=== PATIENT | male | born 1970 | race Caucasian/White ===

== ENCOUNTER → 2018-03-29 | Outpatient (CLI) | payer BC ==
[~2018-03-29] MED LIST: REGADENOSON 0.4 MG/5 ML SYRINGE IV ONE
--- NOTE | 2018-03-29 10:46 | ECHOF ---
Referral Reason:I48.1 Persistent atrial fibrillation MEASUREMENTS -------- HEIGHT: 182.9 cm WEIGHT: 108.9 kg BP: RVIDd: 3.1 cm (< 3.3) IVSd: 1.3 cm (0.6 - 1.1) LVIDd: 4.3 cm (3.9 - 5.3) LVPWd: 1.6 cm (0.6 - 1.1) IVSs: 1.4 cm LVIDs: 3.7 cm LVPWs: 1.6 cm LA Diam: 3.6 cm (2.7 - 3.8) LAESV Index (A-L): 19.76 ml/m Ao Diam: 3.5 cm (2.0 - 3.7) AV Cusp: 2.1 cm (1.5 - 2.6) LA Diam: 3.9 cm (2.7 - 3.8) MV EXCURSION: 15.271 mm (> 18.000) MV EF SLOPE: 92 mm/s (70 - 150) EPSS: 0.5 cm MV E Alfredo: 0.79 m/s MV DecT: 135 ms MV A Alfredo: 0.31 m/s MV E/A Ratio: 11.84 RAP: 5.00 mmHg RVSP: 15.61 mmHg FINDINGS -------- Undetermined rhythm. This was a technically adequate study. The left ventricular size is normal. There is mild concentric left ventricular hypertrophy. Overa ll left ventricular systolic function is normal with, an EF between 55 - 60 %. The right ventricle is normal in size. The left atrial size is normal. Normal LA size by volume 22+/-6 ml/m2. The right atrial size is normal. The aortic valve is trileaflet, and appears structurally normal. No aortic stenosis or regurgitation. Mild mitral annular calcification present. Mild mitral regurgitation is present. Mild tricuspid regurgitation present. There is no evidence of pulmonary hypertension. The right v entricular systolic pressure, as measured by Doppler, is 15.61mmHg. Trace/mild (physiologic) pulmonic regurgitation. The aortic root size is normal. There is no pericardial effusion. CONCLUSIONS -------- 1. The left ventricular size is normal. 2. There is mild concentric left ventricular hypertrophy. 3. Overall left ventricular systolic function is normal with, an EF between 55 - 60 %. 4. The right ventricle is normal in size. 5. The left atrial size is normal. 6. Normal LA size by volume 22+/-6 ml/m2. 7. The right atrial size is normal. 8. The aortic valve is trileaflet, and appears structurally normal. No aortic stenosis or regurgitati on. 9. Mild mitral annular calcification present. 10. Mild mitral regurgitation is present. 11. Mild tricuspid regurgitation present. 12. There is no evidence of pulmonary hypertension. 13. The right ventricular systolic pressure, as measured by Doppler, is 15.61mmHg. 14. Trace/mild (physiologic) pulmonic regurgitation. 15. The aortic root size is normal. 16. There is no pericardial effusion. LAN/WAN ENGINEER: Kimber Wick RDCS
--- NOTE | 2018-03-29 11:28 | NM ---
EXAMINATION TYPE: NM stress lexiscan cardiolite DATE OF EXAM: 03/29/2018 COMPARISON: NONE HISTORY: Persistent A. fib TECHNIQUE: After the intravenous administration of 9.78 mCi Tc 99m Sestamibi - Cardiolite resting SP ECT images acquired 45 minutes post injection. The patient received 0.4mg Lexiscan, 25.8 mCi Tc 99m Sestamibi - Stress images obtained [address] injection FINDINGS: Review of stress and rest SPECT images demonstrates no distinct perfusion abnormality. Gated analysi s shows normal wall motion with an estimated left ventricular ejection fraction of 49 %. IMPRESSION: 1. No diagnostic evidence of stress-induced reversible ischemia. 2. Ejection fraction of 49%. Correlate clinically.
--- NOTE | 2018-03-29 11:59 | EST ---
EXERCISE STRESS DATE OF SERVICE: 03/29/2018 AGE: 47 SEX: Male HT: 6'1" WT: 240 pounds PROTOCOL: Lexiscan Cardiolite STAGE: DURATION OF EXERCISE: HEART RATE REST: 84 BLOOD PRESSURE REST: 146/90 MAXIMUM HEART RATE ACHIEVED: 96 MAXIMUM BLOOD PRESSURE: 135/93 85% MPHR: 147 100% MPHR: 175 METS: INDICATIONS: CLINICAL INFORMATION: A Lexiscan Cardiolite study was performed. Peak heart rate of 96 was achieved maximum blood pressure of 135/93 mmHg was noted. The resting EKG shows a normal sinus rhythm with normal ID interval and QRS duration and normal ST-T waves. No ST-segment depression suggestive of ischemia was noted. The results of the nuclear study will follow. TIBURCIO / JEANN: [id number] /
== END | disposition home or self-care (01) ==
LOC: RADNMMAIN 08:22
PROVIDERS: ATTEND Internal Medicine Interventional Cardiology
DX: I08.1 Rheumatic disorders of both mitral and tricuspid valves (principal); I48.1 Persistent atrial fibrillation
CPT/HCPCS: 93017; 93306; 78452; A9500; J2785

== ENCOUNTER → 2018-04-17 | Outpatient (CLI) | payer BC ==
[2018-04-17 17:50] LABS: Basophils % (A) 1 %; Eosinophils # (A) 0.1 k/uL (0-0.7); Eosinophils % (A) 2 %; HCT 42.2 % (39.0-53.0); HGB 14.5 gm/dL (13.0-17.5); Lymphocytes # (A) 1.4 k/uL (1.0-4.8); Lymphocytes % (A) 23 %; MCH 29.9 pg (25.0-35.0); MCHC 34.3 g/dL (31.0-37.0); MCV 87.1 fL (80.0-100.0); Mean Platelet Volume 6.4; Monocytes # (A) 0.4 k/uL (0-1.0); Monocytes % (A) 6 %; Neutrophils # (A) 4.1 k/uL (1.3-7.7); Neutrophils % (A) 66 %; Platelet Count 221 k/uL (150-450); RBC 4.84 m/uL (4.30-5.90); RDW 13.2 % (11.5-15.5); WBC 6.2 k/uL (3.8-10.6)
[2018-04-17 19:14] LABS: Anion Gap 10 mmol/L; Blood Urea Nitrogen 20 mg/dL (9-20); Carbon Dioxide 22 mmol/L (22-30); Chloride 104 mmol/L (98-107); Potassium 4.4 mmol/L (3.5-5.1); Sodium 136 mmol/L (137-145)
== END | disposition home or self-care (01) ==
LOC: LABPAT 17:00
PROVIDERS: ATTEND Internal Medicine Interventional Cardiology
DX: Z01.812 Encounter for preprocedural laboratory examination (principal); R09.89 Other specified symptoms and signs involving the circulatory and respiratory systems; I48.1 Persistent atrial fibrillation
CPT/HCPCS: 80051; 82565; 84520; 85025

== ENCOUNTER 2018-04-18 06:22 | Day surgery (SDC) | payer BC ==
[2018-04-17 08:38] VITALS: BMI 31.6
[~2018-04-18 06:22] MED LIST changes: +LACTATED RINGERS 1,000 ML IV SCH; -REGADENOSON 0.4 MG/5 ML SYRINGE IV ONE; +SODIUM CHLORIDE 0.9% 1,000 ML IV SCH
[2018-04-18 06:51] LABS: Glucose,Whole Blood 151 mg/dL (75-99)
[2018-04-18 07:01] VITALS: TEMP 98.4
[2018-04-18] MEDS ORDERED: PROPOFOL 10 MG/ML 20 ML VIAL IV ONE (07:02)
[2018-04-18] MEDS ORDERED: BENZOCAINE SPRAY 1 CAN MUCOUS MEM ONE ×2 (07:20→07:23)
[2018-04-18] MEDS ORDERED: FAMOTIDINE 20 MG TAB PO PRN (07:37)
[2018-04-18] MEDS ORDERED: SODIUM CHLORIDE 0.9% 1,000 ML IV SCH (07:45)
--- NOTE | 2018-04-18 08:04 | ECHOT ---
TRANSESOPHAGEAL ECHOCARDIOGRAM INDICATION: Atrial fibrillation. PROCEDURE: After explaining the procedure to the patient, its risks and the complications, his blood pressure, heart rate, O2 saturation was monitored. The throat was sprayed with Cetacaine. He received sedation per anesthesia department. The probe was introduced into the esophagus without difficulty. Images were obtained. Following that, the probe was removed. There was no immediate complication. FINDINGS: Left atrial size is dilated. Left atrial appendage is normal. Left ventricular size is normal. There is moderate to severe global hypokinesis. Ejection fraction is 35% to 40% The aortic valve appears to be normal. Mitral valve is normal. Tricuspid valve is normal. Descending thoracic aorta appears to be normal. No pericardial effusion was noted. Contrast bubble study revealed no shunting across the interatrial septum. Doppler pulse wave and color Doppler obtained revealed mild to moderate mitral with mild tricuspid regurgitation. There was no shunting by color Doppler study. CONCLUSION: 1. Dilated left atrium with normal appearance of left atrial appendage. 2. Normal left ventricular size with moderate to severely impaired left ventricular systolic function. 3. Mild to moderate mitral with mild tricuspid regurgitation. 4. No shunting across the interatrial septum. 5. No pericardial effusion. MMODL / IJN: [id number] /
--- NOTE | 2018-04-18 08:40 | CE ---
CARDIAC ELECTROPHYSIOLOGY REPORT CARDIOVERSION PROCEDURE NOTE: INDICATION: Atrial fibrillation. PROCEDURE: After explaining the procedure to the patient, its risks and complications; blood pressure, heart rate, O2 saturation was monitored. After obtaining sedated state and performing transesophageal echocardiogram, a synchronized biphasic cardioversion using 200 joules was performed with roman catholic of normal sinus rhythm. There was no immediate complication. TIBURCIO / CHELSEY: [id number] /
[2018-04-18 08:53] VITALS: RESP 16
[2018-04-18] MEDS ORDERED: APIXABAN 5 MG TAB PO SCH (09:00)
[2018-04-18] MEDS ORDERED: METOPROLOL SUCCINATE (ER) 25 MG TAB.ER.24H PO SCH (09:00)
[2018-04-18] MEDS ORDERED: NON-FORMULARY DRUG (Metformin Hcl Er 500 MG) PO SCH (09:00)
[2018-04-18 09:35] VITALS: BP 133/84; PULSE 82
== END 2018-04-18 09:26 | disposition home or self-care (01) ==
LOC: CATHCVL 06:22
PROVIDERS: ATTEND Internal Medicine Interventional Cardiology
DX: I48.1 Persistent atrial fibrillation (principal); G47.33 Obstructive sleep apnea (adult) (pediatric); E11.9 Type 2 diabetes mellitus without complications; Z79.84 Long term (current) use of oral hypoglycemic drugs; Z79.01 Long term (current) use of anticoagulants; Z79.899 Other long term (current) drug therapy
CPT/HCPCS: 93312; 93320; 93325; 92960; J2704

== ENCOUNTER → 2018-06-04 | Outpatient (CLI) | payer BC ==
--- NOTE | 2018-06-04 18:59 | CONS ---
CONSULTATION REASON FOR CONSULTATION: Sleep apnea. 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 He has loud snoring, witnessed apneas, excessive tiredness and sleepiness, and he can fall asleep any time during the day. Moreover, the patient was diagnosed having cardiac arrhythmias and he is having issues with atrial fibrillation. He had cardioversion, currently on metoprolol and Eliquis. He has gained weight over the years. He goes to bed around 10:00 p.m., wakes up at 6 a.m. in the morning, averages around 8 to 10 hours of sleep. He stops breathing at night and is very fatigued and tired during the day. [place] score is 12. No history of any motor vehicle accident because of feeling drowsy or sleepy. No sleep paralysis. No hallucinations. No cataplexy. PAST MEDICAL HISTORY: 1. Atrial fibrillation. 2. 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 PAST SURGICAL HISTORY: Includes elective kidney donation. ALLERGIES: NOT KNOWN. OUTPATIENT MEDICATION: Includes Eliquis and metoprolol. SOCIAL HISTORY: Nonsmoker. No history of alcoholism. No history of IV drugs. FAMILY HISTORY: Positive for type 1 diabetes mellitus in his sister, kidney failure in his father. REVIEW OF SYSTEMS: Twelve-point review of systems was done. Positive findings were all mentioned above in the history of present illness. No history of any grinding of the teeth. No choking or gasping sensation. No nocturia. No anxiety or panic attacks. No palpitations. No claustrophobia. No anxiety. No depression. PHYSICAL EXAMINATION: BP is 128/83, pulse 59, respirations 16, temperature 98.2, weight 250. Height is 6 feet 1 inch, BMI 32.9. Neck size 18-1/2. [place] score is 12. GENERAL APPEARANCE: Calm, comfortable. Head is atraumatic, normocephalic. Neck is supple. There is no JVD. No goiter or neck masses. Mallampati class IV. LUNGS: Clear to auscultation. Heart sounds have irregular rhythm. Normal S1, S2. ABDOMEN: Soft, non-tender. No organomegaly. EXTREMITIES: No edema. No cyanosis or clubbing. NEUROLOGIC: Alert and oriented x3. No focal neurological deficits. PSYCHIATRIC: Negative for anxiety or depression. IMPRESSION: 1. Hypersomnia. [place] score of 12. High suspicion for obstructive sleep apnea. 2. Loud snoring. 3. Witnessed apneas. 4. Mallampati class IV. 5. Chronic atrial fibrillation. 6. Normal echocardiogram without any evidence of congestive heart failure or valvular heart disease. PLAN: 1. Encourage weight loss. 2. Proceed with a home sleep study to assess for the presence of any sleep breathing disorder and treat accordingly. MMJOSE RAFAELL / IJN: [id number] /
== END | disposition home or self-care (01) ==
LOC: SLEEP 16:18
PROVIDERS: ATTEND Internal Medicine Critical Care Medicine
DX: G47.30 Sleep apnea, unspecified (principal); G47.10 Hypersomnia, unspecified; I48.2 Chronic atrial fibrillation; Z79.01 Long term (current) use of anticoagulants; Z94.0 Kidney transplant status
CPT/HCPCS: 99211

== ENCOUNTER → 2018-07-29 | Outpatient (CLI) | payer BC ==
--- NOTE | 2018-07-30 13:09 | ECHOF ---
Referral Reason:I48.1 Persistent atrial fibrillation MEASUREMENTS -------- HEIGHT: 185.4 cm WEIGHT: 108.9 kg BP: 148/100 RVIDd: 3.3 cm (< 3.3) IVSd: 1.4 cm (0.6 - 1.1) LVIDd: 4.1 cm (3.9 - 5.3) LVPWd: 1.5 cm (0.6 - 1.1) IVSs: 1.6 cm LVIDs: 3.3 cm LVPWs: 1.9 cm LA Diam: 4.0 cm (2.7 - 3.8) LAESV Index (A-L): 25.17 ml/m Ao Diam: 3.4 cm (2.0 - 3.7) AV Cusp: 2.0 cm (1.5 - 2.6) EPSS: 1.0 cm MV EF SLOPE: 271.10 mm/s (70 - 150) MV EXCURSION: 1.41 cm (> 18.000) FINDINGS -------- Atrial fibrillation. This was a technically good study. The left ventricular size is normal. There is moderate concentric left ventricular hypertrophy. O verall left ventricular systolic function is mildly impaired with, an EF between 45 - 50 %. The right ventricle is mildly enlarged. Normal LA size by volume 22+/-6 ml/m2. The right atrium is normal in size. Interatrial and interventricular septum intact. The aortic valve is trileaflet and appears structurally normal. The mitral valve is normal. The tricuspid valve appears structurally normal. Trace/mild (physiologic) pulmonic regurgitation. The aortic root size is normal. Normal inferior vena cava with normal inspiratory collapse consistent with estimated right atrial pre ssure of 5 mmHg. There is no pericardial effusion. CONCLUSIONS -------- 1. Atrial fibrillation. 2. This was a technically good study. 3. The left ventricular size is normal. 4. There is moderate concentric left ventricular hypertrophy. 5. The right ventricle is mildly enlarged. 6. Normal LA size by volume 22+/-6 ml/m2. 7. The right atrium is normal in size. 8. Interatrial and interventricular septum intact. 9. The aortic valve is trileaflet and appears structurally normal. 10. The mitral valve is normal. 11. The tricuspid valve appears structurally normal. 12. Trace/mild (physiologic) pulmonic regurgitation. 13. The aortic root size is normal. 14. Normal inferior vena cava with normal inspiratory collapse consistent with estimated right atrial pressure of 5 mmHg. 15. There is no pericardial effusion. RESIDENTIAL PROGRAM MANAGER: SAMANTHA Knox
--- NOTE | 2018-08-02 10:15 | P.PCN ---
Date of Procedure: 07/29/18 Preoperative Diagnosis: Palpitations Postoperative Diagnosis: Episodes of atrial fibrillation with rapid ventricular response Procedure(s) Performed: 24-hour Holter monitor Description of Procedure: Predominant rhythm is sinus rhythm with frequent APCs. Patient had one bout of atrial fibrillation at 11 AM. This bout lasted for about 60 minutes and 44 seconds, stating about 1.25% of the total heartbeats. Patient had occasional PVCs and occasional to frequent APCs. No sustained ventricular arrhythmias noted. Patient did not report any symptoms. Final impression: #1. Predominant rhythm is sinus with an average heart rate of about 85 beats #2. A bout of atrial fibrillation lasting about 16 minutes with a maximum heart rate of 189 with an average heart rate of 148. #3. Occasional to frequent APCs. #4. Occasional PVCs. #5. Patient did not report any symptoms.
--- NOTE | 2018-08-05 14:58 | HM ---
Date of : 70 Patient Status: Clinical Attending Provider: Kristin James Date: 08/02/18 10:10 Initialization Date: 08/02/18 10:10 Date of Procedure: 07/29/18 Preoperative Diagnosis: Palpitations Postoperative Diagnosis: Episodes of atrial fibrillation with rapid ventricular response Procedure(s) Performed: 24-hour Holter monitor Description of Procedure: Predominant rhythm is sinus rhythm with frequent APCs. Patient had one bout of atrial fibrillation at 11 AM. This bout lasted for about 60 minutes and 44 seconds, stating about 1.25% of the total heartbeats. Patient had occasional PVCs and occasional to frequent APCs. No sustained ventricular arrhythmias noted. Patient did not report any symptoms. Final impression: #1. Predominant rhythm is sinus with an average heart rate of about 85 beats .#2. A bout of atrial fibrillation lasting about 16 minutes with a maximum heart rate of 189 with an average heart rate of 148. #3. Occasional to frequent APCs. #4. Occasional PVCs. #5. Patient did not report any symptoms. HUSAMD
== END | disposition home or self-care (01) ==
LOC: RADECHMAIN 11:27
PROVIDERS: ATTEND Internal Medicine Interventional Cardiology
DX: I49.3 Ventricular premature depolarization (principal); I49.1 Atrial premature depolarization; I48.1 Persistent atrial fibrillation
CPT/HCPCS: 93225; 93226; 93306

== ENCOUNTER → 2018-08-06 | Outpatient (CLI) | payer BC ==
--- NOTE | 2018-08-06 19:40 | PN ---
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 He also has loud snoring and witnessed apneas. The patient underwent a home sleep study and was found to have mild THOR, positional, with an AHI of 9.9, worse in the supine body position with an AHI of .8 while supine. Based on that, he was given an APAP. Initially I gave him an APAP with a minimum pressure of 5, maximum pressure of 20. He went online and was able to modify the pressures to a minimum pressure of 7, maximum of 15. Still now he is having difficulties tolerating his treatment. He is quite anxious. He is unable to shut off his mind during sleep hours. He always thinks of work-related issues. As such, he has some difficulty initiating and maintaining sleep. At the same time, the CPAP pressure seems to be making him quite uncomfortable and he is unable to find the right mask interface for now. I was able to offer him initially an AirFit F20 and he also has an AirFit N20 mask. He is not seeing good success with either of the masks, which are a full-face mask and nose mask. He is looking for alternatives. REVIEW OF SYSTEMS: Fourteen-point review of systems was done. Positive findings are mentioned above in the history of present illness. He remains quite somewhat somnolent, sleepy, fatigued and tired during the day. He is a kidney donor. He has a single kidney and he has also a history of atrial fibrillation. PHYSICAL EXAMINATION: BP is 127/71, pulse 83, respirations 16. [place] score is 3. Temperature 98.0. Weight is 249. GENERAL APPEARANCE: Calm, comfortable. Head is atraumatic, normocephalic. NECK: Supple. There is no JVD. No goiter or neck mass. LUNGS: Clear to auscultation. HEART: Heart sounds are regular rate and rhythm. Normal S1, S2. No S3, S4. No murmurs. ABDOMEN: Soft, nontender. No organomegaly. EXTREMITIES: No edema. No cyanosis or clubbing. NEUROLOGIC: Alert and oriented x3. No focal neurological deficits. PSYCHIATRY: Negative for anxiety or depression. IMPRESSION: 1. Obstructive sleep apnea with an apnea/hypopnea index of 9.9, worse in the supine body position. 2. Chronic hypersomnia. 3. Obesity. PLAN: The patient is having difficulty tolerating his CPAP machine. He has been averaging 1.9 hours of CPAP use. Over the past 30 days he has utilized his machine only 18 out of 30 days. His average pressure on his APAP is 8.5 cm. Leak is 16 L/minute. His AHI is down to 5.8 while on treatment. I am not sure the patient is going to be able to tolerate this on a long-term basis. I offered him the SEVENROOMSWear full-face mask, small size, to try. This may be something that he will be able to use in the future. Keep the same pressure setting and report to me back in a few weeks' time. If treatment is not successful, we will discontinue the APAP treatment. TIBURCIO / CHELSEY: [id number] /
== END ==
LOC: SLEEP 14:57
PROVIDERS: ATTEND Internal Medicine Critical Care Medicine
DX: G47.33 Obstructive sleep apnea (adult) (pediatric) (principal); E66.9 Obesity, unspecified; Z99.89 Dependence on other enabling machines and devices

== ENCOUNTER 2024-05-27 20:26 | Emergency (ER) | payer OTHER ==
--- NOTE | 2024-05-27 21:02 | ED ---
Recheck HPI - General Source: patient, RN notes reviewed Mode of arrival: ambulatory Limitations: no limitations <Cecilia Baker - Last Filed: 05/27/24 21:01> <Leonardo Patterson - Last Filed: 05/31/24 00:21> - General Chief Complaint: Recheck/Abnormal Lab/Rx Stated Complaint: SOB Time Seen by Provider: 05/27/24 21:01 - History of Present Illness Initial Comments: Quick note: 53-year-old male presented to ER for evaluation of hypertension. Patient states metoprolol and losartan for blood pressure control. Patient took medication and still found to be hypertensive. He also reports a headache today that was relieved with Tylenol. Does have a history of migraines. Patient reports heartburn denies any chest pain. Admits to exertional dyspnea today while taking out the trash. (Cecilia Baker) 53-year-old male presenting with chief complaint of elevated blood pressure. Patient does have history of hypertension and currently takes metoprolol and losartan. Patient noticed he was feeling flushed and had a bit of a headache at home took his blood pressure and found it to be elevated. States that this has been ongoing for the past few days. He did take an extra metoprolol. States that he has had headaches for the past few days. Patient does have history of migraines and follows with a specialist. He denies any chest pain, difficulty breathing, blurred vision, abdominal pain. He does have some exertional dyspnea today while taking out the trash. No current palpitations. No nausea or vomiting. No dizziness. (Leonardo Patterson) - Related Data Home Medications Medication Instructions Recorded Confirmed Apixaban [Eliquis] 5 mg PO BID 04/17/18 04/18/18 Metoprolol Succinate (ER) [Toprol 25 mg PO DAILY 04/17/18 04/18/18 Xl] metFORMIN HCL ER [Glucophage Xr] 500 mg PO DAILY 04/17/18 04/18/18 Famotidine [Pepcid] 20 mg PO DAILY PRN 04/18/18 04/18/18 Allergies Allergy/AdvReac Type Severity Reaction Status Date / Time No Known Allergies Allergy Verified 05/27/24 20:31 Review of Systems ROS Other: All systems not noted in ROS Statement are negative. <Cecilia Baker - Last Filed: 05/27/24 21:01> ROS Other: All systems not noted in ROS Statement are negative. <Leonardo Patterson - Last Filed: 05/31/24 00:21> ROS Statement: Those systems with pertinent positive or pertinent negative responses have been documented in the HPI. Past Medical History Past Medical History: Atrial Fibrillation, Diabetes Mellitus Additional Past Medical History / Comment(s): only has one kidney History of Any Multi-Drug Resistant Organisms: None Reported Past Surgical History: Orthopedic Surgery Additional Past Surgical History / Comment(s): nephrectomy(donated to family member), arthroscopy knees Past Anesthesia/Blood Transfusion Reactions: No Reported Reaction Past Psychological History: No Psychological Hx Reported Past Alcohol Use History: Occasional Past Drug Use History: None Reported - Past Family History Mother Family Medical History: No Reported History <Cecilia Baker - Last Filed: 05/27/24 21:01> General Exam Limitations: no limitations <Cecilia Baker - Last Filed: 05/27/24 21:01> Limitations: no limitations General appearance: alert, in no apparent distress Head exam: Present: atraumatic, normocephalic, normal inspection Eye exam: Present: normal appearance, EOMI Neck exam: Present: normal inspection. Absent: meningismus Respiratory exam: Present: normal lung sounds bilaterally. Absent: respiratory distress, wheezes, rales, rhonchi, stridor Cardiovascular Exam: Present: regular rate, normal rhythm, normal heart sounds. Absent: systolic murmur, diastolic murmur, rubs, gallop, clicks Neurological exam: Present: alert, oriented X3 Psychiatric exam: Present: normal affect, normal mood Skin exam: Present: warm, dry, normal color <Leonardo Patterson - Last Filed: 05/31/24 00:21> - General Exam Comments Initial Comments: Visual Physical Exam Vital signs reviewed General: Well-appearing, nontoxic, no acute distress. Head: Normocephalic, atraumatic Eyes: PERRLA, EOMI ENT: Airway patent Chest: Nonlabored breathing Skin: No visual rash, normal skin tone Neuro: Alert and oriented 3 Musculoskeletal: No gross abnormalities (Cecilia Baker) Course Vital Signs 05/27/24 05/27/24 05/27/24 20:28 22:36 23:00 Temperature 98 F 97.9 F Pulse Rate 66 65 71 Respiratory 16 18 18 Rate Blood Pressure 187/106 179/94 180/109 O2 Sat by Pulse 97 98 98 Oximetry Medical Decision Making <Cecilia Baker - Last Filed: 05/27/24 21:01> - Lab Data Result diagrams: 05/27/24 20:36 05/27/24 20:36 <YeseniaLeonardo - Last Filed: 05/31/24 00:21> - Medical Decision Making I performed the quick note portion of this chart. Electronically signed by Cecilia Baker PA-C (Cecilia Baker) Was pt. sent in by a medical professional or institution ([facility], BILINGUAL STUDENT TUTOR, urgent care, hospital, or [facility]...) When possible be specific @ -No Did you speak to anyone other than the patient for history (EMS, parent, family, police, friend...)? What history was obtained from this source @ -No Did you review nursing and triage notes (agree or disagree)? Why? @ -I reviewed and agree with nursing and triage notes Were old charts reviewed (outside hosp., previous admission, EMS record, old EKG, old radiological studies, urgent care reports/EKG's, [facility] records)? Report findings @ -No old charts were reviewed Differential Diagnosis (chest pain, altered mental status, abdominal pain women, abdominal pain men, vaginal bleeding, weakness, fever, dyspnea, syncope, headache, dizziness, GI bleed, back pain, seizure, CVA, palpatations, mental health, musculoskeletal)? @ -MDM Differential Headache: Migraine, tension, cluster, carbon monoxide, central venous thrombosis, pension karma temporal arteritis, acute closure glaucoma, intercranial hemorrhage, mastoiditis, sinusitis, head injury this is not meant to be an all-inclusive list. EKG interpreted by me (3pts min.). @ -EKG shows sinus rhythm ventricular rate 62. [place] interval 136. QRS 82. QT 369. QTc 375. X-rays interpreted by me (1pt min.). @ -Chest x-ray shows no acute process CT interpreted by me (1pt min.). @ -None done U/S interpreted by me (1pt. min.). @ -None done What testing was considered but not performed or refused? (CT, X-rays, U/S, labs)? Why? @ -None What meds were considered but not given or refused? Why? @ -None Did you discuss the management of the patient with other professionals (professionals i.e. , PA, BILINGUAL STUDENT TUTOR, lab, RT, psych nurse, social media community manager, preparation room worker, teacher, complaint investigations officer, window caser)? Give summary @ -No Was smoking cessation discussed for >3mins.? @ -No Was critical care preformed (if so, how long)? @ -No Were there social determinants of health that impacted care today? How? (Homelessness, low income, unemployed, alcoholism, drug addiction, transportation, low edu. Level, literacy, decrease access to med. care, shelter, rehab)? @ -No Was there de-escalation of care discussed even if they declined (Discuss DNR or withdrawal of care, Hospice)? DNR status @ -No What co-morbidities impacted this encounter? (DM, HTN, Smoking, COPD, CAD, Cancer, CVA, ARF, Chemo, Hep., AIDS, mental health diagnosis, sleep apnea, morbid obesity)? @ -None Was patient admitted / discharged? Hospital course, mention meds given and route, prescriptions, significant lab abnormalities, going to OR and other pertinent info. @ -53-year-old male presenting with chief complaint of elevated blood pressure. Admits to headache. States that this been ongoing for few days. Workup is initiated by triage. Lab work requires no immediate action. Negative troponin. EKG shows sinus rhythm. Chest x-ray shows no acute process. By the time the patient is placed back in a room and evaluated by myself he is not having any headache. Blood pressure is 179/94. Patient is asymptomatic. Patient declined clonidine as he is currently asymptomatic. He is instructed to keep a blood pressure diary and follow-up with his PCP for possible adjustment of his medications. Follow-up with PCP. Report back to ER with any new or worsening symptoms. Discussed return parameters and answered all questions. Patient conveyed verbal understanding and agreed to the plan. I discussed this case in detail with my attending Dr. Valenzuela Undiagnosed new problem with uncertain prognosis? @ -No Drug Therapy requiring intensive monitoring for toxicity (Heparin, Nitro, Insulin, Cardizem)? @ -No Were any procedures done? @ -No Diagnosis/symptom? @ -Hypertension Acute, or Chronic, or Acute on Chronic? @ -Acute on chronic Uncomplicated (without systemic symptoms) or Complicated (systemic symptoms)? @ -Complicated Side effects of treatment? @ -No Exacerbation, Progression, or Severe Exacerbation? @ -No Poses a threat to life or bodily function? How? (Chest pain, USA, OR, pneumonia, PE, COPD, DKA, ARF, appy, cholecystitis, CVA, Diverticulitis, Homicidal, Suicidal, threat to staff... and all critical care pts) @ -There can be long-term threat posed if the patient has longstanding uncontrolled hypertension (Leonardo Patterson) - Lab Data Lab Results 05/27/24 05/27/24 05/27/24 Range/Units 20:36 20:36 20:36 WBC 7.6 (3.8-10.6) k/uL RBC 4.67 (4.30-5.90) m/uL Hgb 13.8 (13.0-17.5) gm/dL Hct 40.3 (39.0-53.0) % MCV 86.2 (80.0-100.0) fL MCH 29.5 (25.0-35.0) pg MCHC 34.2 (31.0-37.0) g/dL RDW 12.8 (11.5-15.5) % Plt Count 257 (150-450) k/uL MPV 7.1 Neutrophils % 67 % Lymphocytes % 23 % Monocytes % 6 % Eosinophils % 2 % Basophils % 0 % Neutrophils # 5.1 (1.3-7.7) k/uL Lymphocytes # 1.7 (1.0-4.8) k/uL Monocytes # 0.5 (0-1.0) k/uL Eosinophils # 0.2 (0-0.7) k/uL Basophils # 0.0 (0-0.2) k/uL PT 10.5 (10.0-12.5) sec INR 0.9 (<1.2) APTT 24.4 (22.0-30.0) sec Sodium 135 L (137-145) mmol/L Potassium 4.2 (3.5-5.1) mmol/L Chloride 102 (98-107) mmol/L Carbon Dioxide 23 (22-30) mmol/L Anion Gap 10 mmol/L BUN 16 (9-20) mg/dL Creatinine 0.73 (0.66-1.25) mg/dL Est GFR (CKD-EPI)AfAm >90 (>60 ml/min/1.73 sqM) Est GFR (CKD-EPI)NonAf >90 (>60 ml/min/1.73 sqM) Glucose 122 H (74-99) mg/dL Calcium 10.7 H (8.4-10.2) mg/dL Magnesium 2.0 (1.6-2.3) mg/dL Total Bilirubin 0.7 (0.2-1.3) mg/dL AST 32 (17-59) U/L ALT 32 (4-49) U/L Alkaline Phosphatase 118 (38-126) U/L Troponin I (0.000-0.034) ng/mL Total Protein 7.3 (6.3-8.2) g/dL Albumin 4.6 (3.5-5.0) g/dL 05/27/24 Range/Units 20:36 WBC (3.8-10.6) k/uL RBC (4.30-5.90) m/uL Hgb (13.0-17.5) gm/dL Hct (39.0-53.0) % MCV (80.0-100.0) fL MCH (25.0-35.0) pg MCHC (31.0-37.0) g/dL RDW (11.5-15.5) % Plt Count (150-450) k/uL MPV Neutrophils % % Lymphocytes % % Monocytes % % Eosinophils % % Basophils % % Neutrophils # (1.3-7.7) k/uL Lymphocytes # (1.0-4.8) k/uL Monocytes # (0-1.0) k/uL Eosinophils # (0-0.7) k/uL Basophils # (0-0.2) k/uL PT (10.0-12.5) sec INR (<1.2) APTT (22.0-30.0) sec Sodium (137-145) mmol/L Potassium (3.5-5.1) mmol/L Chloride (98-107) mmol/L Carbon Dioxide (22-30) mmol/L Anion Gap mmol/L BUN (9-20) mg/dL Creatinine (0.66-1.25) mg/dL Est GFR (CKD-EPI)AfAm (>60 ml/min/1.73 sqM) Est GFR (CKD-EPI)NonAf (>60 ml/min/1.73 sqM) Glucose (74-99) mg/dL Calcium (8.4-10.2) mg/dL Magnesium (1.6-2.3) mg/dL Total Bilirubin (0.2-1.3) mg/dL AST (17-59) U/L ALT (4-49) U/L Alkaline Phosphatase (38-126) U/L Troponin I <0.012 (0.000-0.034) ng/mL Total Protein (6.3-8.2) g/dL Albumin (3.5-5.0) g/dL Disposition <Cecilia Baker - Last Filed: 05/27/24 21:01> Is patient prescribed a controlled substance at d/c from ED?: No Time of Disposition: 22:40 <Leonardo Patterson - Last Filed: 05/31/24 00:21> Clinical Impression: Hypertension Disposition: HOME SELF-CARE Condition: Fair Instructions (If sedation given, give patient instructions): Hypertension (ED) Additional Instructions: Follow up with your PCP. Report back to ER with any new or worsening symptoms. Keep a blood pressure diary a checking her blood pressure around the same time each day, for example breakfast lunch and dinner, to review with your PCP. Referrals: Heidi Bee MD [Primary Care Provider] - 1-2 days
--- NOTE | 2024-05-27 21:03 | XR ---
EXAMINATION TYPE: XR chest 2V DATE OF EXAM: 05/27/2024 9:00 PM COMPARISON: None CLINICAL INDICATION: Male, 53 years old with history of Chest Pain; [facility] TECHNIQUE: XR chest 2V Frontal and lateral views of the chest. FINDINGS: Lungs/Pleura: There is no evidence of pleural effusion, focal consolidation, or pneumothorax. Pulmonary vascularity: Unremarkable. Heart/mediastinum: Cardiomediastinal silhouette is unremarkable. Musculoskeletal: No acute osseous pathology. Other findings: None IMPRESSION: No acute cardiopulmonary disease/process. [facility], , 05/27/2024 9:01 PM
[2024-05-27 21:04] LABS: Basophils % (A) 0 %; Eosinophils # (A) 0.2 k/uL (0-0.7); Eosinophils % (A) 2 %; HCT 40.3 % (39.0-53.0); HGB 13.8 gm/dL (13.0-17.5); Lymphocytes # (A) 1.7 k/uL (1.0-4.8); Lymphocytes % (A) 23 %; MCH 29.5 pg (25.0-35.0); MCHC 34.2 g/dL (31.0-37.0); MCV 86.2 fL (80.0-100.0); Mean Platelet Volume 7.1; Monocytes # (A) 0.5 k/uL (0-1.0); Monocytes % (A) 6 %; Neutrophils # (A) 5.1 k/uL (1.3-7.7); Neutrophils % (A) 67 %; Platelet Count 257 k/uL (150-450); RBC 4.67 m/uL (4.30-5.90); RDW 12.8 % (11.5-15.5); WBC 7.6 k/uL (3.8-10.6)
[2024-05-27 21:13] LABS: INR 0.9 (<1.2); Partial Thromboplastin Time 24.4 sec (22.0-30.0); Prothrombin Time 10.5 sec (10.0-12.5)
[2024-05-27 21:16] LABS: ALT 32 U/L (4-49); AST 32 U/L (17-59); African American GFR (CKD) >90 (>60 ml/min/1.73 sqM); Albumin 4.6 g/dL (3.5-5.0); Alkaline Phosphatase 118 U/L (38-126); Anion Gap 10 mmol/L; Blood Urea Nitrogen 16 mg/dL (9-20); Calcium 10.7 mg/dL (8.4-10.2); Carbon Dioxide 23 mmol/L (22-30); Chloride 102 mmol/L (98-107); Glucose 122 mg/dL (74-99); Non-African American GFR(CKD) >90 (>60 ml/min/1.73 sqM); Potassium 4.2 mmol/L (3.5-5.1); Sodium 135 mmol/L (137-145); Total Bilirubin 0.7 mg/dL (0.2-1.3); Total Protein 7.3 g/dL (6.3-8.2)
[2024-05-27 22:37] VITALS: RESP 18
[2024-05-27 23:01] VITALS: BP 180/109; PULSE 71; TEMP 97.9
== END 2024-05-27 23:01 | disposition home or self-care (01) ==
LOC: EC 20:26
DX: I11.9 Hypertensive heart disease without heart failure (principal); I48.91 Unspecified atrial fibrillation
CPT/HCPCS: 36415; 71046; 80053; 83735; 84484; 85025; 85610; 85730; 93005; 99285